=== PATIENT | female | born 1990 | race Caucasian/White ===

== ENCOUNTER 2016-09-06 07:53 | Emergency (ER) | payer BC ==
[~2016-09-06 07:53] MED LIST: BENTYL20 M1 PO; ZOFRAN ODT4 MG PO; ZOLOFT25 M1 PO
[2016-09-06] MEDS ORDERED: ZOFRAN ODT8 MG PO (08:46)
[2016-09-06] MEDS ORDERED: PRENATAL-U CAPS1 CAP PO (08:46)
[2016-09-06 09:04] LABS: ANION GAP 14 mmol/L (0-20); BLOOD UREA NITROGEN 13 mg/dl (6-24); CALCIUM 8.4 mg/dl (8.5-10.5); CARBON DIOXIDE-VENOUS 21 mmol/L (22-32); CHLORIDE 107 mmol/l (96-110); CREATININE 0.64 mg/dl (0.50-1.10); GLUCOSE 124 mg/dL (70-110); POTASSIUM 3.9 mmol/L (3.7-5.1); SODIUM 138 mmol/L (135-145); eGFR VALUE FOR BLACK >90 mL/Min
[2016-09-06 11:00] LABS: URINE APPEARANCE HAZY; URINE BILIRUBIN NEGATIVE (NEG); URINE BLOOD NEGATIVE (NEG); URINE COLOR DARK YELLOW; URINE GLUCOSE (UA) NEGATIVE (NEG); URINE KETONE LARGE (NEG); URINE LEUKOCYTE ESTERASE NEGATIVE (NEG); URINE NITRITE NEGATIVE (NEG); URINE PROTEIN SMALL (NEG); URINE SPECIFIC GRAVITY 1.015 (1.003-1.030)
[2016-09-06 11:06] LABS: URINE MUCUS 2+
[2016-09-06 11:08] LABS: URINE EPITHELIAL CELLS 0-2 /[HPF] (0-10); URINE RBC 0 /[HPF] (0-5); URINE WBC 0 /[HPF] (0-5)
[2016-09-06] MEDS ORDERED: PROMETHAZINE HC25 M3 PO (13:04)
[2016-09-06] MEDS ORDERED: PHENERGAN12.5 M2 PR (13:04)
== END 2016-09-06 13:17 ==
LOC: EDMED 07:53
PROVIDERS: Emergency Medicine
DX: O20.0 Threatened abortion (principal); O21.0 Mild hyperemesis gravidarum; Z3A.01 Less than 8 weeks gestation of pregnancy; Z98.890 Other specified postprocedural states
CPT/HCPCS: J1200; J2405; J2550; J7030